=== PATIENT | female | born 1985 | race Caucasian/White ===

== ENCOUNTER 2020-09-07 11:06 | Emergency (ER) | payer OTHER ==
[2020-09-07 11:36] LABS: HEMOGLOBIN 12.4 gm/dl (12.3-15.3); RED BLOOD COUNT 4.11 M/UL (4.00-5.10); WHITE BLOOD COUNT 8.2 K/UL (4.5-11.0)
[2020-09-07 12:22] LABS: BUN/CREATININE RATIO 17 (0-10)
[2020-09-07] MEDS ORDERED: KEPPRA500 MG PO (13:37)
== END 2020-09-07 14:15 | disposition home or self-care (01) ==
LOC: ER1 11:06
PROVIDERS: Emergency Medicine
DX: G40.909 Epilepsy, unspecified, not intractable, without status epilepticus (principal); E87.6 Hypokalemia; F15.10 Other stimulant abuse, uncomplicated; F17.200 Nicotine dependence, unspecified, uncomplicated; Z85.41 Personal history of malignant neoplasm of cervix uteri
CPT/HCPCS: 70450; 71045; 80053; 80185; 80307; 81001; 82550; 82553; 83874; 84484; 84703; 85025; 93005; 96374; 99285; J1953; J7030